=== PATIENT | male | born 1990 | race Caucasian/White ===

== ENCOUNTER 2023-07-01 08:30 | Day surgery (SDC) | payer OTHER ==
--- NOTE | 2023-07-01 07:58 | HP ---
DATE OF SURGERY: 07/01/2023 HISTORY OF PRESENT ILLNESS: The patient is a 32-year-old gentleman upper esophagus dysphagia worse initially but a little better now. He is in need of upper endoscopy for further evaluation. PAST MEDICAL HISTORY: He denies any chronic illnesses. PAST SURGICAL HISTORY: Vasectomy in the past. MEDICATIONS: None on a regular basis. ALLERGIES: NKDA. FAMILY HISTORY: Diabetes and dysphagia. SOCIAL HISTORY: Former smoker. No alcohol abuse. REVIEW OF SYSTEMS: Twelve systems reviewed. No chest pain or palpitations. Other systems negative or noncontributory as above and per preadmission questionnaire. PHYSICAL EXAMINATION: Height 5 foot 11 inches. BMI 34.87. GENERAL: No acute distress. HEENT: Sclerae nonicteric. EOMI. Oral mucous membranes moist. NECK: No JVD. CHEST: Equal excursion, nonlabored breathing. CVS: Regular rate and rhythm. ABDOMEN: Soft, nondistended. EXTREMITIES: No cyanosis or edema. NEURO: Alert, oriented, moving extremities symmetrically. PSYCH: Appropriate mood and affect. SKIN: Dry. IMPRESSION: Dysphagia. I would recommend EGD possible biopsy possible dilatation. General risk of bleeding or infection, risk of trocar injury or hernia, risk of bowel, bladder or blood vessel injury, risk of bile leak, bile duct injury, retained stone or sludge possibly requiring further procedure, open or ERCP, general risk of anesthesia, deep vein thrombosis, pulmonary embolism or pneumonia, possible need for open procedure, possible no narrowing to dilate or possible neurological function problem that dilatation would not benefit. If dilatation does improve his swallowing might need repeated down the road again. He understands all of the above but not limited to. He agrees with the planned procedure, will proceed EGD possible biopsy possible dilatation as an outpatient.
[2023-07-01 08:45] VITALS: RESP 16
[2023-07-01] MEDS ORDERED: Lactated Ringers 1,000 ML IV SCH (09:00)
[2023-07-01] MEDS ORDERED: Xylocaine-Mpf 2% 5 Ml Vial ONE (10:43)
[2023-07-01] MEDS ORDERED: DIPRIVAN 200 MG/20 ML IV ONE (10:43)
[2023-07-01] MEDS ORDERED: Versed 2 MG/2 ML Injection ONE ×2 (10:43→10:48)
[2023-07-01 12:04] VITALS: BP 141/89; PULSE 86; TEMP 97.4; O2SAT 96
--- NOTE | 2023-07-01 13:28 | OP ---
SURGERY DATE/TIME: 07/01/2023 1053 PREOPERATIVE DIAGNOSIS: History of dysphagia. POSTOPERATIVE DIAGNOSES: 1) Proximal esophageal narrowing and spasm without evidence of any lesion to biopsy. 2) Minimal to mild gastritis. 3) Borderline short segment minimal to mild distal esophagitis. PROCEDURES: 1) EGD with cold biopsy of antrum to evaluate for Helicobacter pylori. 2) Cold biopsy distal esophagus. 3) Cold biopsy mid esophagus to evaluate for eosinophilic esophagitis. 4) Proximal esophageal dilatation (size 20 balloon dilator). SURGEON: Dr. Cristino Velarde. ANESTHESIA: MAC. ESTIMATED BLOOD LOSS: Minimal. INDICATIONS: As noted above. Risks and benefits explained in detail and not limited to and consent obtained. DESCRIPTION OF PROCEDURE AND FINDINGS: The patient is taken to the endoscopy room. MAC anesthesia introduced. The patient had a long drawn out trial and he remained hemodynamically stable throughout the procedure. After official time out and no disagreement with planned procedure, a bite block positioned. Video gastroscope passed down the oropharynx. He did have a little bit of proximal esophageal narrowing and spasm without any evidence of any mass or lesion to biopsy. The scope was able to be passed through here through the patent pylorus around to the junction of the third and fourth portion of the duodenum. Duodenum grossly unremarkable. Back in the stomach there was a small, petechial sized area of erythema and some possible minimal to mild gastritis. Cold biopsy is taken to evaluate for Helicobacter pylori. Good hemostasis noted. On retroflex, the gastroesophageal junction fairly snug against the scope. No signs of any large hiatal hernia. The scope is straightened. Gastroesophageal junction was about 40 cm. There was some borderline minimal to mild inflammation at the gastroesophageal junction. Cold biopsy taken to evaluate for distal esophagitis. Again, this is a very short segment. There are no signs of any Arriaga's. No signs of any small erosions. The distal esophagus was biopsied. Cold biopsy is taken and also biopsy of mid esophagus to evaluate for eosinophilic esophagitis. Good hemostasis noted. As he has had the dysphagia, it was felt he would benefit from dilatation upper esophagus. Scope passed back down in the stomach. 20 balloon catheter carefully inserted and pulled back up the proximal esophageal narrowed area where it was carefully inflated. First stage for 20 to 30 seconds, second stage for 20 to 30 seconds and final stage for about 1 minute and 45 seconds to 2 minutes with up to size 20 balloon dilator. The balloon was then decompressed and it was withdrawn. The scope much more easily passed through this area down into stomach and carefully withdrawn. There were no signs of any full thickness issues or injury secondary to dilatation or biopsy. The patient tolerated the procedure well. Findings discussed with his out in the waiting area.
== END 2023-07-01 12:00 | disposition home or self-care (01) ==
LOC: SDC 08:30
PROVIDERS: ATTEND Surgery
DX: Z87.19 Personal history of other diseases of the digestive system (principal); K22.2 Esophageal obstruction; K29.70 Gastritis, unspecified, without bleeding; K20.90 Esophagitis, unspecified without bleeding
CPT/HCPCS: C1726; J2250; J2704

== ENCOUNTER 2024-07-26 19:47 | Emergency (ER) | payer OTHER ==
[2024-07-26 20:08] VITALS: TEMP 96
[2024-07-26] MEDS ORDERED: TORAdol 30 mg Injection ONE (20:21)
[2024-07-26] MEDS ORDERED: BENADRYL 50 MG/ML ONE (20:21)
[2024-07-26] MEDS ORDERED: Compazine 10 MG/2 ML ONE (20:21)
[2024-07-26] MEDS ORDERED: Sodium Chloride 0.9% 1000 ML 1,000 ML ONE (20:21)
[2024-07-26] MEDS: Sodium Chloride 0.9% 1000 ML 1,000 ML IV STA (20:23)
[2024-07-26] MEDS: Compazine 10 MG/2 ML IV ONE (20:23)
[2024-07-26] MEDS: BENADRYL 50 MG/ML IV ONE (20:23)
[2024-07-26] MEDS: TORAdol 30 mg Injection IV ONE (20:23)
[2024-07-26 20:24] LABS: Absolute Neutrophil Ct (ANC) 3.65 x10^3/uL (1.78-5.38); BASOPHIL % 0.9 % (0.2-1.2); Basophil (Absolute #) 0.06 x10^3/uL (0.01-0.08); Eosinophil % 4.5 % (0.8-7.0); Eosinophil (Absolute #) 0.31 x10^3/uL (0.04-0.54); Hematocrit 44.8 % (40.1-51.0); Hemoglobin 15.4 g/dL (13.7-17.5); IMMATURE GRAN # 0.06 x10^3u/L (0.001-0.031); IMMATURE GRAN % 0.9 % (0.001-0.429); Lymphocyte (Absolute #) 2.28 x10^3/uL (1.32-3.57); Lymphocytes % 32.8 % (21.8-53.1); Mean Cell Volume 89.1 fL (79.0-92.2); Mean Corpuscular Hemoglobin 30.6 pg (25.7-32.2); Mean Corpuscular Hgb Concent. 34.4 g/dL (32.3-36.5); Mean Platelet Volume 8.7 fL (9.4-12.4); Monocyte (Absolute #) 0.59 x10^3/uL (0.30-0.82); Monocytes % 8.5 % (5.3-12.2); Neutrophil % 52.4 % (34.0-67.9); Platelet Count 293 x10^3/uL (163-337); Red Blood Count 5.03 x10^6/uL (4.63-6.08); Red Cell Distribution Width 11.9 % (11.6-14.4)
[2024-07-26 20:38] LABS: ALBUMIN 4.9 g/dL (3.5-5.0); BILIRUBIN,TOTAL 0.5 mg/dL (0.2-1.3); Calcium 9.4 mg/dL (8.4-10.2); Creatinine 1 0.81 mg/dL (0.66-1.25); EST GLOMERULAR FILTRATION RATE 120.9 ML/MIN; Potassium 3.6 mmol/L (3.5-5.1); Total Protein 7.3 g/dL (6.3-8.2)
--- NOTE | 2024-07-26 20:46 | ERPHSYRPT ---
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 Patien t states that he feels unwell. Slightly lightheaded and dizzy. No syncope. No chest pain or shortness of breath no nausea vomiting or diaphoresis. No numbness tingling or weakness. Patient reports is otherwise healthy. Patient voices no other complaints or concerns at this time. Portions of this note were created with voice recognition technology. There may be grammatical, spelling, punctuation or sound alike errors Timing/Duration: day(s) (2 days) Severity: moderate Modifying Factors: Improves With: nothing Associated Symptoms: denies symptoms Allergies/Adverse Reactions: No Known Drug Allergies Allergy (Verified 07/26/24 19:59) Home Medications: No Reportable Medications [No Reported Medications] 06/24/23 [History] Hx Tetanus, Diphtheria Vaccination/Date Given: Yes Hx Influenza Vaccination/Date Given: Yes Hx Pneumococcal Vaccination/Date Given: No Immunizations Up to Date: Yes Travel Risk - International Travel Have you traveled outside of the country in past 3 weeks: No - Emerging Infectious Disease Are you exhibiting symptoms associated with any current EIDs: Yes Symptoms: Headaches/Body Aches/ - Review of Systems Constitutional: No Symptoms, No Fever, No Chills Eyes: No Symptoms Ears, Nose, & Throat: No Symptoms Respiratory: No Symptoms, No Cough, No Dyspnea Cardiac: No Symptoms, No Chest Pain, No Edema, No Syncope Abdominal/Gastrointestinal: No Symptoms, No Abdominal Pain, No Nausea, No Vomiting, No Diarrhea Genitourinary Symptoms: No Symptoms, No Dysuria Musculoskeletal: No Symptoms, No Back Pain, No Neck Pain Skin: No Symptoms, No Rash Neurological: No Symptoms, No Dizziness, No Focal Weakness, No Sensory Changes Psychological: No Symptoms Endocrine: No Symptoms Hematologic/Lymphatic: No Symptoms Immunological/Allergic: No Symptoms All Other Systems: Reviewed and Negative - Past Medical History Pertinent Past Medical History: No Neurological History: No Pertinent History ENT History: No Pertinent History Cardiac History: No Pertinent History Respiratory History: No Pertinent History Endocrine Medical History: No Pertinent History Musculoskeletal History: No Pertinent History GI Medical History: No Pertinent History History: No Pertinent History Psycho-Social History: No Pertinent History Male Reproductive Disorders: No Pertinent History - Past Surgical History Past Surgical History: Yes Neuro Surgical History: No Pertinent History Cardiac: No Pertinent History Respiratory: No Pertinent History Gastrointestinal: No Pertinent History Genitourinary: No Pertinent History Musculoskeletal: No Pertinent History Male Surgical History: Vasectomy - Social History Smoking Status: Never smoker Exposure to second hand smoke: No Drug Use: none - Social Determinants of Health Will the patient participate in the screening: Yes Do you worry about a steady place to live?: No Do you have any problems with any of the following?: No known problems In the past 12 months,have you had to go without utilities?: No Transportation Issues: No Has anyone in your support network made you feel unsafe?: No Have you or anyone in your house had to go w/o enough food: No - Nursing Vital Signs Nursing Vital Signs: Initial Vital Signs Temperature 96 F 07/26/24 20:00 Pulse Rate 91 H 07/26/24 20:00 Respiratory Rate 18 07/26/24 20:00 Blood Pressure 144/109 07/26/24 20:00 O2 Sat by Pulse Oximetry 99 07/26/24 20:00 Pain Scale Pain Intensity 3 - Physical Exam General Appearance: no apparent distress, alert Eye Exam: PERRL/EOMI, eyes nml inspection Ears, Nose, Throat Exam: normal ENT inspection, pharynx normal, moist mucous membranes Neck Exam: normal inspection, non-tender, supple, full range of motion Respiratory Exam: normal breath sounds, lungs clear, airway intact, No respiratory distress Cardiovascular Exam: regular rate/rhythm, normal heart sounds, normal peripheral pulses Gastrointestinal/Abdomen Exam: soft, normal bowel sounds, No tenderness, No mass Back Exam: normal inspection, normal range of motion, No CVA tenderness, No yasmine tebral tenderness Extremity Exam: normal inspection, normal range of motion, pelvis stable Neurologic Exam: alert, oriented x 3, cooperative, normal mood/affect, nml cerebellar function, nml station & gait, sensation nml, No motor deficits Skin Exam: normal color, warm, dry, No rash Lymphatic Exam: No adenopathy SpO2 Interpretation: normal SpO2: 99 O2 Delivery: Room Air - Course Nursing assessment & vital signs reviewed: Yes EKG Interpreted by Me: RATE (74), Sinus Rhythm, NORMAL AXIS, NORMAL INTERVALS, NORMAL QRS - CT Exams Head CT Interpretation: Tele-radiologist Report (No acute intracranial pathology. 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 07/26/24 20:09 Active IV Insertion STAT Care 07/26/24 20:09 Active Pulse Oximetry (ED) STAT Care 07/26/24 20:09 Active HEAD WITHOUT CONTRAST [CT] Stat Exams 07/26/24 21:18 Completed CBC W DIFF Stat Lab 07/26/24 20:20 Completed CMP Stat Lab 07/26/24 20:20 Completed TROPONIN Q4H Lab 07/26/24 20:20 Completed TROPONIN Q4H Lab 07/27/24 00:15 Ordered TROPONIN Q4H Lab 07/27/24 04:15 Ordered TSH [TSH, 3RD Generation] Stat Lab 07/26/24 21:21 Completed Medication Summary Discontinued Medications Generic Name Dose Route Start Last Admin Trade Name Freq PRN Reason Stop Dose Admin Diphenhydramine HCl 50 mg 07/26/24 20:11 07/26/24 20:23 Diphenhydramine Hcl 50 Mg/Ml Vial IV 07/26/24 20:12 50 mg STAT ONE Administration Diphenhydramine HCl Confirm 07/26/24 20:21 Diphenhydramine Hcl 50 Mg/Ml Vial Administered 07/26/24 20:22 Dose 50 mg .ROUTE .STK-MED ONE Sodium Chloride 1,000 mls @ 999 mls/hr 07/26/24 20:09 07/26/24 21:40 Sodium Chloride 0.9% 1000 Ml IV 07/26/24 21:09 Infused .Q1H1M STA Infusion Sodium Chloride Confirm 07/26/24 20:21 Sodium Chloride 0.9% 1000 Ml Administered 07/26/24 20:22 Dose 1,000 mls @ ud .ROUTE .STK-MED ONE Ketorolac Tromethamine 30 mg 07/26/24 20:11 07/26/24 20:23 Ketorolac Tromethamine 30 Mg/Ml Inj IV 07/26/24 20:12 30 mg STAT ONE Administration Ketorolac Tromethamine Confirm 07/26/24 20:21 Ketorolac Tromethamine 30 Mg/Ml Inj Administered 07/26/24 20:22 Dose 30 mg .ROUTE .STK-MED ONE Prochlorperazine Edisylate 10 mg 07/26/24 20:10 07/26/24 20:23 Prochlorperazine Edisylate 10 Mg/2 Ml Vial IV 07/26/24 20:11 10 mg STAT ONE Administration Prochlorperazine Edisylate Confirm 07/26/24 20:21 Prochlorperazine Edisylate 10 Mg/2 Ml Vial Administered 07/26/24 20:22 Dose 10 mg .ROUTE .[facility] ONE Lab/Rad Data: Laboratory Result Diagrams 07/26/24 20:20 07/26/24 20:20 Laboratory Results 07/26/24 07/26/24 07/26/24 Range/Units 21:21 20:30 20:20 WBC (4.23-9.07) x10^3/uL RBC (4.63-6.08) x10^6/uL Hgb (13.7-17.5) g/dL Hct (40.1-51.0) % MCV (79.0-92.2) fL MCH (25.7-32.2) pg MCHC (32.3-36.5) g/dL RDW (11.6-14.4) % Plt Count (163-337) x10^3/uL MPV (9.4-12.4) fL Gran % (34.0-67.9) % Immature Gran % (Auto) (0.001-0.429) % Nucleat RBC Rel Count (0.00-0.2) % Eos # (Auto) (0.04-0.54) x10^3/uL Immature Gran # (Auto) (0.001-0.031) x10^3u/L Absolute Lymphs (auto) (1.32-3.57) x10^3/uL Absolute Monos (auto) (0.30-0.82) x10^3/uL Absolute Nucleated RBC (0.00-0.012) x10^3u/L Lymphocytes % (21.8-53.1) % Monocytes % (5.3-12.2) % Eosinophils % (0.8-7.0) % Basophils % (0.2-1.2) % Absolute Granulocytes (1.78-5.38) x10^3/uL Basophils # (0.01-0.08) x10^3/uL Sodium (135-145) mmol/L Potassium (3.5-5.1) mmol/L Chloride (98-107) mmol/L Carbon Dioxide (22-30) mmol/L Anion Gap (5-15) MEQ/L BUN (9-20) mg/dL Creatinine (0.66-1.25) mg/dL Estimated GFR ML/MIN Glucose (74-106) mg/dL Calcium (8.4-10.2) mg/dL Total Bilirubin (0.2-1.3) mg/dL AST (17-59) U/L ALT (0-50) U/L Alkaline Phosphatase (38-126) U/L Troponin I < 0.012 (0.000-0.033) ng/mL Serum Total Protein (6.3-8.2) g/dL Albumin (3.5-5.0) g/dL TSH 3rd Generation 1.696 (0.470-4.680) mIU/L Influenza Type A Ag NEGATIVE (NEGATIVE) Influenza Type B Ag NEGATIVE (NEGATIVE) RSV (PCR) NEGATIVE (NEGATIVE) SARS-CoV-2 (PCR) NEGATIVE (NEGATIVE) 07/26/24 07/26/24 Range/Units 20:20 20:20 WBC 7.0 (4.23-9.07) x10^3/uL RBC 5.03 (4.63-6.08) x10^6/uL Hgb 15.4 (13.7-17.5) g/dL Hct 44.8 (40.1-51.0) % MCV 89.1 (79.0-92.2) fL MCH 30.6 (25.7-32.2) pg MCHC 34.4 (32.3-36.5) g/dL RDW 11.9 (11.6-14.4) % Plt Count 293 (163-337) x10^3/uL MPV 8.7 L (9.4-12.4) fL Gran % 52.4 (34.0-67.9) % Immature Gran % (Auto) 0.9 H (0.001-0.429) % Nucleat RBC Rel Count 0.0 (0.00-0.2) % Eos # (Auto) 0.31 (0.04-0.54) x10^3/uL Immature Gran # (Auto) 0.06 H (0.001-0.031) x10^3u/L Absolute Lymphs (auto) 2.28 (1.32-3.57) x10^3/uL Absolute Monos (auto) 0.59 (0.30-0.82) x10^3/uL Absolute Nucleated RBC 0.00 (0.00-0.012) x10^3u/L Lymphocytes % 32.8 (21.8-53.1) % Monocytes % 8.5 (5.3-12.2) % Eosinophils % 4.5 (0.8-7.0) % Basophils % 0.9 (0.2-1.2) % Absolute Granulocytes 3.65 (1.78-5.38) x10^3/uL Basophils # 0.06 (0.01-0.08) x10^3/uL Sodium 141 (135-145) mmol/L Potassium 3.6 (3.5-5.1) mmol/L Chloride 102 (98-107) mmol/L Carbon Dioxide 25 (22-30) mmol/L Anion Gap 17.0 H (5-15) MEQ/L BUN 10 (9-20) mg/dL Creatinine 0.81 (0.66-1.25) mg/dL Estimated GFR 120.9 ML/MIN Glucose 122 H (74-106) mg/dL Calcium 9.4 (8.4-10.2) mg/dL Total Bilirubin 0.50 (0.2-1.3) mg/dL AST 32 (17-59) U/L ALT 33 (0-50) U/L Alkaline Phosphatase 59 (38-126) U/L Troponin I (0.000-0.033) ng/mL Serum Total Protein 7.3 (6.3-8.2) g/dL Albumin 4.9 (3.5-5.0) g/dL TSH 3rd Generation (0.470-4.680) mIU/L Influenza Type A Ag (NEGATIVE) Influenza Type B Ag (NEGATIVE) RSV (PCR) (NEGATIVE) SARS-CoV-2 (PCR) (NEGATIVE) - Progress Progress: improved Progress Note: 33-year-old male presents to our ED for evaluation of a headache and lightheadedness some dizziness. Laboratory workup completed. No significant findings observed. RSV flu COVID influenza negative. CT head negative for acute intracranial pathology. Polyposis observed. TSH within normal limits. Patient's neurological exam within normal limits upon arrival and at discharge. Patient ambulated throughout our ED. Patient felt well. He was asymptomatic. No headache no dizziness no lightheadedness. Patient states he is ready for discharge. Patient agrees to follow-up with his primary care doctor within 48 hours for reevaluation. Portions of this note were created with voice recognition technology. There may be grammatical, spelling, punctuation or sound alike errors Complexity of problem addressed is moderate acute complicated. No critical care time. Complex of data reviewed and analyzed is moderate. Test ordered chest reviewed results analyzed and correlated clinically with history and physical exam. Risk of complication and or risk of morbidity/mortality of patient management is low. Vital stable. Time spent to discharge patient is approximately 15 minutes. Plan of care established for shared decision making. No social determinants of health present to impede follow-up. Portions of this note were created with voice recognition technology. There may be grammatical, spelling, punctuation or sound alike errors 07/26/24 22:32 Counseled pt/family regarding: lab results, diagnosis, need for follow-up, rad results - Departure Departure Disposition: Home Clinical Impression: Headache, Dizziness Condition: Stable Critical Care Time: No Referrals: DOCTOR,NO FAMILY [Primary Care Provider] - Follow up/PCP as directed MATEUSZ LEAVITT MD [ACTIVE STAFF] - Follow up/PCP as directed Additional Instructions: Discharge/Care Plan SONIDO GRAYSON was seen on 07/26/24 in the Emergency Room. The patient was counseled regarding Diagnosis,Lab results, Imaging studies, need for follow up and when to return to the Emergency Room. Prescriptions given: Discharge Note I have spoken with the patient and/or caregivers. I have explained the patient's condition, diagnosis and treatment plan based on the information available to me at this time. I have answered the patient's and/or caregiver's questions and a ddressed any concerns. The patient and/or caregivers have as good understanding of the patient's diagnosis, condition and treatment plan as can be expected at this point. The vital signs have been stable. The patient's condition is stable and appropriate for discharge from the emergency department. The patient will pursue further outpatient evaluation with the primary care physician or other designated or consulting physician as outlined in the discharge instructions. The patient and/or caregivers are agreeable to this plan of care and follow-up instructions have been explained in detail. The patient and/or caregivers have received these instruction. The patient/and or caregivers are aware that any significant change in condition or worsening of symptoms should prompt an immediate return to this or the closest emergency department or call 911.
[2024-07-26 21:00] LABS: INFLUENZA A NEGATIVE (NEGATIVE); INFLUENZA B NEGATIVE (NEGATIVE); RESPIRATORY SYNCTIAL VIRUS NEGATIVE (NEGATIVE); SARS-CoV-2 Xpert Express NEGATIVE (NEGATIVE)
--- NOTE | 2024-07-26 22:18 | XRAY ---
CLINICAL HISTORY: headache dizziness COMPARISON: None TECHNIQUE: Multiple axial images are obtained from the skull base to the vertex without contrast. CT scan was performed according to ALARA (as low as reasonably achievable). FINDINGS: The brain shows normal morphology, attenuation, and volume for age. No evidence of space occupying lesion, hemorrhage, edema, mass effect, midline shift, extra axial collection, or hydrocephalus is noted. Ventricles, sulci, and basal cisterns are symmetric and normal in size and configuration. The graff-white matter differentiation is preserved. There is mild to minimal polyposis in bilateral maxillary sinus, bilateral anterior ethmoid air cells and left frontal sinus. Rest of the visualized paranasal sinuses and mastoid air cells are well aerated. Orbital contents are within normal limits. Bony structures are intact. IMPRESSION: 1. No evidence of acute intracranial abnormality is demonstrated. 2. Mild to minimal polyposis in bilateral maxillary sinus, bilateral anterior ethmoid air cells and left frontal sinus. Electronically Signed by: Gerber Del Rosario MD. (07/26/2024 22:13:17 EST)
[2024-07-26 22:31] VITALS: O2SAT 99
[2024-07-26 22:33] VITALS: BP 131/86; PULSE 72; RESP 10
== END 2024-07-26 22:41 | disposition home or self-care (01) ==
LOC: ED 19:47
DX: R51.9 Headache, unspecified (principal); R42 Dizziness and giddiness
CPT/HCPCS: 0241U; 36415; 70450; 80053; 84443; 84484; 85025; 93005; 93041; 94760; 96361; 96374; 96375; 99285; J1200; J1885